=== PATIENT | female | born 1995 | race African-American/Black ===

== ENCOUNTER 2016-06-12 16:03 | Emergency (ER) | payer OTHER ==
[~2016-06-12] VITALS: Ht 157.5 cm; Wt 63.6 kg
[~2016-06-12 16:03] MED LIST: IBUP100S PO
[2016-06-12 16:05] VITALS: BP 114/68; PULSE 66; RESP 14; TEMP 98.1; O2SAT 97
--- NOTE | 2016-06-12 16:29 | PD ---
HPI Chief Complaint: Injury Time Seen by Provider: 16:24 Travel History International Travel<30 days: No Contact w/Intl Traveler<30days: No Traveled to known affect area: No History of Present Illness HPI 21-year-old female presents to the emergency department for evaluation of left elbow injury that occurred yesterday. She states she was playing around and hit her left elbow against the wall. She states she has pain that radiates up and down from her left elbow. She denies any fevers or chills. She has no chronic medical problems and takes no prescribed medications. She denies any loss of sensation. Patient states she can move her left elbow, but has pain with movement. No other complaints. PFSH Past Medical History Diminished Hearing: No Immunizations Current: Yes ?: Not LMP: 04/30/2016 : 0 Para: 0 Miscarriage: 0 : 0 Social History Alcohol Use: Yes (occasionally) Tobacco Use: No Substance Use: No Allergies-Medications (Allergen,Severity, Reaction): Coded Allergies: No Known Allergies (Unverified , 06/12/16) Reported Meds & Prescriptions Reported Meds & Active Scripts Active No Active Prescriptions or Reported Medications Review of Systems Except as stated in HPI: all other systems reviewed are Neg Physical Exam Narrative GENERAL: Well-developed well-nourished female patient, ambulatory. Afebrile. SKIN: Warm and dry. No lacerations or abrasions. HEAD: Normocephalic. Atraumatic. EYES: No scleral icterus. No injection or drainage. NECK: Supple, trachea midline. No JVD or lymphadenopathy. CARDIOVASCULAR: Regular rate and rhythm without murmurs, gallops, or rubs. Left radial pulse 2+. RESPIRATORY: Breath sounds equal bilaterally. No accessory muscle use. Lungs sounds clear to auscultation. GASTROINTESTINAL: Abdomen soft, non-tender, nondistended. MUSCULOSKELETAL: No cyanosis, or edema. Patient has tenderness over the left dorsal elbow. She has full extension, but pain and limited flexion. She has full sensation to the distal left upper extremity. No other bony point tenderness. BACK: Nontender without obvious deformity. No CVA tenderness. Data Data Last Documented VS Vital Signs Date Time Temp Pulse Resp B/P Pulse Ox O2 Delivery O2 Flow Rate FiO2 06/12/16 16:05 98.1 66 14 114/68 97 Room Air Orders Elbow, Complete (4 Vws) (06/12/16 ) Sling Cradle Arm (06/12/16 ) MDM Medical Decision Making Medical Screen Exam Complete: Yes Emergency Medical Condition: Yes Medical Record Reviewed: Yes Interpretation(s) x-ray left elbow - CONCLUSION: Unremarkable examination of the left elbow. Differential Diagnosis Contusion versus fracture versus sprain versus dislocation Narrative Course 21-year-old female presents to the emergency department for evaluation of left elbow injury that occurred yesterday. X-ray left elbow is ordered and pending. X-ray of the left elbow is unremarkable. Patient is given a sling for comfort. She is encouraged to complete range of motion exercises multiple times daily to prevent complication. The patient is agreeable to this. She is to ice and take ibuprofen [id number]. She is to follow-up with her doctor. The patient is agreeable. The patient was discharged in stable condition with instructions, including return instructions and follow up instructions. Diagnosis Primary Impression: Left elbow contusion Referrals: Primary Care Physician call for appointment Patient Instructions: Contusion in Adults (ED), General Instructions Additional Instructions: Wear sling for comfort. Make sure you complete range of motion exercises multiple times daily. Ice for 20 minutes 4-5 times daily. Take ibuprofen as directed as needed with food for pain. Follow-up with your primary care physician. Return to the emergency department for any acute worsening of symptoms. Med/Other Pt SpecificInfo: Prescription(s) given Scripts Ibuprofen 600 Mg [id number] Mg PO TID PRN (PAIN SCALE 1 TO 10) #21 TAB Ref 0 Prov:Indira Garcia 06/12/16 Disposition: 01 DISCHARGE HOME Condition: Stable Indira Garcia Jun 12, 2016 16:29
--- NOTE | 2016-06-12 17:09 | RADRPT ---
EXAM DATE/TIME: 06/12/2016 16:42 [facility] COMPARISON: No previous studies available for comparison. INDICATIONS : Left elbow pain after hitting against wall. MEDICAL HISTORY : None. SURGICAL HISTORY : None. ENCOUNTER: Initial ACUITY: 2 days PAIN SCORE: 7/10 LOCATION: Left elbow. FINDINGS: Multiple view examination of the left elbow demonstrates no soft tissue swelling, joint effusion, or fracture. The osseous structures are in normal alignment. Bony mineralization is normal. CONCLUSION: Unremarkable examination of the left elbow. Yasmany Herman MD on June 12, 2016 at 17:07 Board Certified Radiologist. This report was verified electronically.
[2016-06-12] MEDS ORDERED: IBUP-232 PO (17:18)
== END 2016-06-12 17:40 | disposition home or self-care (01) ==
LOC: NEPB 16:03
DX: S50.02XA Contusion of left elbow, initial encounter (principal); W22.01XA Walked into wall, initial encounter; Y99.8 Other external cause status
CPT/HCPCS: 73080; 99283

== ENCOUNTER 2016-11-01 16:54 | Emergency (ER) | payer OTHER ==
[~2016-11-01] VITALS: Ht 157.5 cm; Wt 63.5 kg
[~2016-11-01 16:54] MED LIST changes: +IBUP-232 PO; -IBUP100S PO
[2016-11-01 16:56] VITALS: BP 134/76; PULSE 128; RESP 20; TEMP 98.6; O2SAT 100
== END 2016-11-01 17:37 | disposition left against medical advice (07) ==
LOC: NED 16:54
DX: Z53.29 Procedure and treatment not carried out because of patient's decision for other reasons (principal)
CPT/HCPCS: 99281